=== PATIENT | female | born 1980 | race African-American/Black ===

== ENCOUNTER 2024-08-26 16:52 | Emergency (ER) | payer BC, OTHER ==
--- OUTSIDE RECORDS SUMMARY | 2024-08-26 16:55 | XMS REPORT | Continuity of Care Document ---
Author Name Unknown Address [address] [address] [facility] [address] [place] [address] [facility] [place] Address [address] [place] [address] Care Team Providers Care Rug Receiving Clerk Name Role Phone Joey Navarro Primary Care Physician [phone] Doctor Unassigned, [place] Attending Clinician U navailable Radiology Attending Clinician Unavailable RADIOLOGY Attending Clinician Unavailable Payers Payer Name Policy Type Policy Number Effective Date Expirati on Date Source Allergies, Adverse Reactions, Alerts Allergy Name Allergy Type Status Severity Reaction(s) Onset Date Inactive Date Treating Clinician Comments Source NO KNOWN ALLERGIE S Drug Class Active [facility] Social History Social Habit Start Date Stop Date Quantity Comments Source Sexual orientation [facility] Sex assigned at 1980 00:00:00 1980 00:00:00 [facility] Smoking Status Start Date Stop Date Source Tobacco smoking consumption unknown [facility] Procedures Procedure Date / Time Performed Performing Clinician Source BI ULTRASOUND BREAST COMPLETE RIGHT 2024-06-18 16:39:00 Requisition, Paper [facility] BI DIAGNOSTIC TOMOSYNTHESIS BILATERAL 2024-06-18 15:58:54 Joey Navarro [facility] Encounters Start Date/Time End Date/Time Encounter Type Admission Type Attending Clinicians Care Facility Care Department Encounter ID Source 2024-07-10 00:00:00 2024-08-10 18:14:17 Patient Secure Msg Doctor Unassigned, [place] Doctor Unassigned, [place] [facility] [id number] [facility] 2024-06-18 09:12:38 2024-06-18 23:59:00 Hospital Encounter Radiology Radiology [facility] [id number] [facility] 2024-06-18 09:12:24 2024-06-18 23:59:00 Hospital Encounter Radiology Radiology [facility] [id number] [facility] 2024-06-18 09:12:24 2024-06-18 23:59:00 Outpatient R RADIOLOGY [facility] [id number] [facility] Results Test Description Test Time Test Comments Results Result Comments Source BI Ultrasound breast complete right 17:48:57 Examination:BI Diagnostic tomosynthesis bilateralBI Ultrasound breast complete right History:Patient is 43 year old and is seen for: Focal right breast pain. This is patient's baseline exam. Computer-aided detection (CAD) utilized. Comparisons : None available Findings: Breast Density: The breasts are almost entirely fatty. The patient has had a previous reduction mammoplasty. RightBI Diagnostic tomosynthesis bilateralThere is a focal asymmetry with associated architectural distortion in the lower inner quadrant at the posterior depth, best seen on R CC 14/67, R SCC 11/55, R ML 38/78 and possibly R SML 48/67). There is no mammographic abnormality at the reported site of focal pain in the upper outer quadrant. BI Ultrasound breast complete rightSurvey ultrasound of the right breast was performed. There is a 0.6 x 0.4 x 0.3 cm irregular, ill-defined hypoechoic mass with shadowing in the lower inner quadrant at 4 o'clock, 8 cm from the nipple that possibly correlates with the mammographic finding. ?This mass is best seen with harmonics. There is no sonographic abnormality at the reported sites of pain in the upper outer and lower outer quadrant. There is a normal-appearing axillary level I lymph node. LeftBI Diagnostic tomosynthesis bilateralThere is no evidence of suspicious masses, calcifications, or other abnormal findings in the left breast. Impression: RIGHT breast 0.6 cm irregular, ill-defined hypoechoic mass with shadowing at 4 o'clock, 8 cm from the nipple that possibly correlates with the mammographic focal asymmetry with associated architectural distortion in the lower inner quadrant, posterior depth. ?BI-RADS 4B. ?Ultrasound-guided core biopsy with clip placement is recommended. ?If the marker clip does not match the finding on the R CC view, then an additional tomosynthesis-guided biopsy would be recommended. No imaging abnormality at the reported sites of pain in the RIGHT breast. No LEFT mammographic evidence of malignancy. Recommendation:Annual mammographic follow-up - LeftUltrasound guided core biopsy - RightTomosynthesis Biopsy - Right Imaging findings and recommendations were discussed with the patient at the time of exam. BI-RADS Category: Left: 2 - BenignRight: 4B - Moderate Suspicion for MalignancyOverall: 4B - Moderate Suspicion for Malignancy [facility] BI Diagnostic tomosynthesis bilateral 17:48:57 Examination:BI Diagnostic tomosynthesis bilateralBI Ultrasound breast complete right History:Patient is 43 year old and is seen for: Focal right breast pain. This is patient's baseline exam. Computer-aided detection (CAD) utilized. Comparisons : None available Findings: Breast Density: The breasts are almost entirely fatty. The patient has had a previous reduction mammoplasty. RightBI Diagnostic tomosynthesis bilateralThere is a focal asymmetry with associated architectural distortion in the lower inner quadrant at the posterior depth, best seen on R CC 14/, R SCC 11/55, R ML 38/78 and possibly R SML 48/67). There is no mammographic abnormality at the reported site of focal pain in the upper outer quadrant. BI Ultrasound breast complete rightSurvey ultrasound of the right breast was performed. There is a 0.6 x 0.4 x 0.3 cm irregular, ill-defined hypoechoic mass with shadowing in the lower inner quadrant at 4 o'clock, 8 cm from the nipple that possibly correlates with the mammographic finding. ?This mass is best seen with harmonics. There is no sonographic abnormality at the reported sites of pain in the upper outer and lower outer quadrant. There is a normal-appearing axillary level I lymph node. LeftBI Diagnostic tomosynthesis bilateralThere is no evidence of suspicious masses, calcifications, or other abnormal findings in the left breast. Impression: RIGHT breast 0.6 cm irregular, ill-defined hypoechoic mass with shadowing at 4 o'clock, 8 cm from the nipple that possibly correlates with the mammographic focal asymmetry with associated architectural distortion in the lower inner quadrant, posterior depth. ?BI-RADS 4B. ?Ultrasound-guided core biopsy with clip placement is recommended. ?If the marker clip does not match the finding on the R CC view, then an additional tomosynthesis-guided biopsy would be recommended. No imaging abnormality at the reported sites of pain in the RIGHT breast. No LEFT mammographic evidence of malignancy. Recommendation:Annual mammographic follow-up - LeftUltrasound guided core biopsy - RightTomosynthesis Biopsy - Right Imaging findings and recommendations were discussed with the patient at the time of exam. BI-RADS Category: Left: 2 - BenignRight: 4B - Moderate Suspicion for MalignancyOverall: 4B - Moderate Suspicion for Malignancy [facility]
[2024-08-26] MEDS ORDERED: KETOROLAC 30 MG/ML INJ ONE (17:29)
[2024-08-26] MEDS ORDERED: methocarbamoL 750 MG TAB ONE (17:29)
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
[2024-08-26 19:21] VITALS: BP 135/93; TEMP 98.3; O2SAT 100
== END 2024-08-26 18:26 | disposition home or self-care (01) ==
LOC: ER 16:52
DX: M54.50 Low back pain, unspecified (principal); S80.02XA Contusion of left knee, initial encounter; V53.5XXA Driver of pick-up truck or van injured in collision with car, pick-up truck or van in traffic accident, initial encounter
CPT/HCPCS: 96372; 99284